=== PATIENT | male | born 1990 | race Hispanic/Latino ===

== ENCOUNTER 2024-10-16 21:18 | Emergency (ER) | payer OTHER ==
[~2024-10-16] VITALS: Ht 180.3 cm; Wt 114.3 kg
[2024-10-16 22:15] LABS: RAPID GROUP A STREP negative (NEGATIVE)
[2024-10-16 22:18] LABS: IMMATURE GRANULOCYTE ABSOLUTE 0.05 K/uL (0-1); NUCLEATED RED BLOOD CELLS 0.0 % (0.0-0.19); PLATELET COUNT (AUTO) 277 K/uL (130-400); RED BLOOD CELL COUNT(AUTO) 5.17 MIL/uL (4.50-6.20); RED CELL DISTRIBUTION WIDTH 12.5 % (11.0-15.5); WHITE BLOOD COUNT (AUTO) 12.0 K/uL (4.8-10.8)
[2024-10-16 22:20] LABS: SARS-CoV-2, RNA, NAAT NEGATIVE SARS CoV-2 (NEGATIVE)
[2024-10-16 22:26] LABS: CREATININE 1.0 mg/dL (0.5-1.3); GLOMERULAR FILTR. RATE CALC 101.0 mL/min (>90); GLUCOSE,RANDOM 313.0 mg/dL (70-105); SODIUM SERUM 132.0 mmol/L (136-145); UREA NITROGEN, BLOOD 9.0 mg/dL (7-18)
[2024-10-16] MEDS ORDERED: IOHEXOL-350 75 ML VIAL IV ONE (22:28)
--- NOTE | 2024-10-16 22:44 | NUR ---
PATIENT TRANSPORTED TO CT.
[2024-10-16] MEDS: 0.9%NACL 1000ML 1,000 ML IV ONE (23:36)
--- NOTE | 2024-10-16 23:54 | HMCIMG ---
EXAM: CT Neck With IV Contrast. CLINICAL HISTORY: Rule out peritonsillar abscess. TECHNIQUE: Contiguous axial images were obtained through the neck. Reconstructed imaging. Reformatted/MPR images were performed. A CT scan is done according to ALARA (As Low as Reasonably Achievable). CONTRAST: Isovue-370. COMPARISON: None. FINDINGS: Included intracranial substances, orbits are grossly unremarkable. A mucosal polyp versus a retention cyst in the right maxillary sinus. The nasal septum is deviated to the left side. Bilateral enlarged tonsillar lymph nodes with a 1.7 x 1.6 x 1.1 cm peritonsillar abscess on the right side. Reactive enlargement of the bilateral level 2 lymph nodes. The nasopharynx, oral cavity, hypopharynx, and larynx are grossly unremarkable. Unremarkable epiglottis, vallecula, aryepiglottic folds, pyriform sinuses, and true vocal cords. The hyoid bone, thyroid, cricoid, and arytenoid cartilages are unremarkable. Parotid, submandibular, and thyroid glands are grossly unremarkable. Visualized, lung apices are grossly clear. No acute osseous abnormality. IMPRESSION: Bilateral enlarged tonsillar lymph nodes with a peritonsillar abscess on the right side. Reactive enlargement of the bilateral level 2 lymph nodes. /Pingree
--- NOTE | 2024-10-17 00:10 | ERN ---
ED Note History of Present Illness Stated Complaint: C/O POSSIBLE PERITONILE ABSCESS Chief Complaint: Sore Throat Time Seen by MD: 21:23 Dictation: 33-YEAR-OLD PRESENTS TO ER COMPLAINTS OF SORE THROAT WHEN DIFFICULTY SWALLOWING FOR 2 DAYS. STATES HE IS COMING FROM AN URGENT CARE AND THEY TOLD HIM TO COME TO GET RULED OUT FOR A PERITONSILLAR ABSCESS. DENIES FEVER. Allergies: Coded Allergies: No Known Allergies (Unverified Allergy, Unknown, 10/16/24) Past Medical History Past Medical History: Diabetes-Type II Surgical History: None Review of System Dictation CONSTITUTIONAL: NEGATIVE FOR FEVER,CHILLS, AND WEIGHT LOSS EYES: NEGATIVE FOR INJURY, PAIN,REDNESS, AND DISCHARGE ENT: POSITIVE FOR PAIN, DIFFICULTY SWOLLEN CARDIOVASCULAR: NEGATIVE FOR CHEST PAIN, PALPITATIONS, AND EDEMA RESPIRATORY: NEGATIVE FOR SHORTNESS OF BREATH, COUGH, WHEEZING, AND PLEURITIC CHEST PAIN ABDOMEN/GI: NEGATIVE FOR ABDOMINAL PAIN, NAUSEA, VOMITING, DIARRHEA, AND CONSTIPATION BACK: NEGATIVE FOR INJURY AND PAIN : NEGATIVE FOR INJURY, BLEEDING AND DISCHARGE MS/EXTREMITY: NEGATIVE FOR INJURY AND DEFORMITY SKIN: NEGATIVE FOR RASH, AND DISCOLORATION NEURO: NEGATIVE FOR HEADACHE, WEAKNESS, NUMBNESS, TINGLING, AND SEIZURE PSYCH: NEGATIVE FOR SUICIDE IDEATION, HOMICIDAL IDEATION, AND HALLUCINATIONS ALLERGY/IMMUNOLOGY: NEGATIVE FOR HIVES, RASH, AND ALLERGIES Initial Vital Sign VS Vital Signs Date Time Temp Pulse Resp B/P (MAP) Pulse Ox O2 Delivery O2 Flow Rate FiO2 10/16/24 21:21 98.4 103 20 156/99 96 Room Air 10/16/24 21:45 0 21 Physical Exam Dictation GENERAL: AWAKE, ALERT, NAD HEAD/FACE: NORMOCEPHALIC, ATRAUMATIC EYES: PERRL, EOMI, VISION AT BASELINE ENT: RIGHT TONSIL AREA NOTED WITH SWELLING, TRISMUS, MUFFLED VOICE NECK: TRACHEA MIDLINE, SUPPLE, NO NUCHAL RIGIDITY CARDIOVASCULAR: RRR, NORMAL S1/S2, NO MRGS, NO JVD RESPIRATORY: CTAB, NO RESPIRATORY DISTRESS, NO RALES OR WHEEZES ABDOMEN: SOFT, NON-TENDER, NON-DISTENDED, NORMAL BOWEL SOUNDS, NO GUARDING OR REBOUND. SKIN: WARM, DRY, NORMAL TURGOR, NO RASH MS/EXTREMITY: PULSES EQUAL, NO CYANOSIS, NEUROVASCULAR INTACT, FROM NEURO: COAX4, GCS 15, STRENGTH 5/5, CN 2-12 INTACT, NORMAL CEREBELLAR EXAM, NORMAL GAIT, PSYCH: NORMAL BEHAVIOR, MOOD, AND AFFECT NORMAL Results (Laboratory/Radiology) Laboratory/Radiology Laboratory Tests Test 10/16/24 22:02 10/16/24 22:12 SARS-CoV-2, RNA, NAAT NEGATIVE SARS CoV-2 Group A Streptococcus Rapid negative (NEGATIVE) White Blood Count 12.0 K/uL (4.8-10.8) H Red Blood Count 5.17 MIL/uL (4.50-6.20) Hemoglobin 16.2 g/dL (14.0-18.0) Hematocrit 46.8 % (42-54) Mean Corpuscular Volume 90.5 fL (79-99) Mean Corpuscular Hemoglobin 31.3 pg (27.0-33.0) Mean Corpuscular Hemoglobin Concent 34.6 g/dL (32.0-36.0) Red Cell Distribution Width 12.5 % (11.0-15.5) Platelet Count 277 K/uL (130-400) Mean Platelet Volume 9.7 fL (7.5-10.5) Immature Granulocyte % (Auto) 0.4 % (0-1) Neutrophils (%) (Auto) 74.9 % (40.0-77.0) Lymphocytes (%) (Auto) 16.2 % (21.0-51.0) L Monocytes (%) (Auto) 7.4 % (3.0-13.0) Eosinophils (%) (Auto) 0.4 % (0.0-8.0) Basophils (%) (Auto) 0.7 % (0.0-5.0) Neutrophils # (Auto) 9.0 K/uL (1.8-7.7) H Lymphocytes # (Auto) 1.9 K/uL (1.0-4.8) Monocytes # (Auto) 0.9 K/uL (0.1-1.0) Eosinophils # (Auto) 0.05 K/uL (0.00-0.70) Basophils # (Auto) 0.08 K/uL (0.00-0.20) Absolute Immature Granulocyte (auto 0.05 K/uL (0-1) Nucleated Red Blood Cells 0.0 % (0.0-0.19) Sodium Level 132 mmol/L (136-145) L Potassium Level 4.0 mmol/L (3.5-5.1) Chloride Level 100 mmol/L (101-111) L Carbon Dioxide Level 30 mmol/L (21-32) Blood Urea Nitrogen 9 mg/dL (7-18) Creatinine 1.0 mg/dL (0.5-1.3) Glomerular Filtration Rate Calc 101 mL/min (>90) Random Glucose 313 mg/dL (70-105) H Total Calcium 8.8 mg/dL (8.5-10.1) CT Scan Comment: EXAM: CT Neck With IV Contrast. CLINICAL HISTORY: Rule out peritonsillar abscess. TECHNIQUE: Contiguous axial images were obtained through the neck. Reconstructed imaging. Reformatted/MPR images were performed. A CT scan is done according to ALARA (As Low as Reasonably Achievable). CONTRAST: Isovue-370. COMPARISON: None. FINDINGS: Included intracranial substances, orbits are grossly unremarkable. A mucosal polyp versus a retention cyst in the right maxillary sinus. The nasal septum is deviated to the left side. Bilateral enlarged tonsillar lymph nodes with a 1.7 x 1.6 x 1.1 cm peritonsillar abscess on the right side. Reactive enlargement of the bilateral level 2 lymph nodes. The nasopharynx, oral cavity, hypopharynx, and larynx are grossly unremarkable. Unremarkable epiglottis, vallecula, aryepiglottic folds, pyriform sinuses, and true vocal cords. The hyoid bone, thyroid, cricoid, and arytenoid cartilages are unremarkable. Parotid, submandibular, and thyroid glands are grossly unremarkable. Visualized, lung apices are grossly clear. No acute osseous abnormality. IMPRESSION: Bilateral enlarged tonsillar lymph nodes with a peritonsillar abscess on the right side. Reactive enlargement of the bilateral level 2 lymph nodes. Course ED Course Orders Procedure Category Date Status Time Covid Rna Naat LAB 10/16/24 Complete 21:25 Rapid (Group A Strep) LAB 10/16/24 Complete 21:25 Cbc With Differential LAB 10/16/24 Complete 21:58 Basic Metabolic Panel LAB 10/16/24 Complete 21:58 Ketorolac PHA 10/16/24 Complete Tromethamine 30mg/Ml 22:00 Dexamethasone 4mg/Ml PHA 10/16/24 Complete 1ml Vial (Dexametha 22:00 Ct Neck Soft Tiss CT 10/16/24 Resulted W/Contrast 21:58 Iohexol (Omnipaque) PHA 10/16/24 Complete 22:28 0.9%Nacl 1000ml (Ns PHA 10/16/24 Complete 1000ml) 23:00 Ceftriaxone 2gm Vial PHA 10/16/24 Complete (Rocephin 2gm Inj) 23:30 Insulin Regular, PHA 10/17/24 Complete Human 3ml (Humulin R 00:30 Current Medications Medications (Trade) Dose Ordered Sig/Se[place]our Route PRN Reason Start Time Stop Time Status Last Admin Dose Admin Ceftriaxone Sodium (Rocephin 2gm Inj) 2 gm ONCE ONCE IVPB 10/16/24 23:30 10/16/24 23:31 DC 10/16/24 23:36 Dexamethasone Sodium Phosphate (dexaMETHasone 4MG/ML 1ML VIAL) 6 mg ONCE ONCE IVP 10/16/24 22:00 10/16/24 22:04 DC 10/16/24 22:55 Insulin Human Regular (humuLIN R 100 UNIT/ML 3ML) 5 unit ONCE ONCE IV 10/17/24 00:30 10/17/24 00:31 DC 10/17/24 00:27 Iohexol (Omnipaque) 75 ml STK-MED ONCE IV 10/16/24 22:28 10/16/24 22:28 DC Ketorolac Tromethamine (toRADol) 30 mg ONCE ONCE IVP 10/16/24 22:00 10/16/24 22:04 DC 10/16/24 22:56 Sodium Chloride 1,000 ml @ 0 mls/hr ONCE ONCE IV 10/16/24 23:00 10/16/24 23:01 DC 10/16/24 23:36 Vital Signs Date Time Temp Pulse Resp B/P (MAP) Pulse Ox O2 Delivery O2 Flow Rate FiO2 10/16/24 23:17 99.0 82 14 138/82 97 Room Air* 0 21 10/16/24 21:45 99.0 84 14 142/82 98 Room Air* 0 21 10/16/24 21:21 98.4 103 20 156/99 96 Room Air Medical Decision Making MDM 33-YEAR-OLD PRESENTS TO ER COMPLAINTS OF SORE THROAT WHEN DIFFICULTY SWALLOWING FOR 2 DAYS. STATES HE IS COMING FROM AN URGENT CARE AND THEY TOLD HIM TO COME TO GET RULED OUT FOR A PERITONSILLAR ABSCESS. DENIES FEVER. PATIENT IS A DIABETIC HAS NOT TAKEN MEDICATIONS FOR 7 MONTHS. MDM: DIFFERENTIAL DIAGNOSIS: STREP THROAT, TONSILLITIS, PERITONSILLAR ABSCESS RATIONALE: TESTS CONSIDERED AND ORDERED SECONDARY TO SHARED DECISION MAKING INCLUDE: LABS, ECG AND RADIOLOGY PREVIOUS OUTSIDE RECORDS REVIEWED: OLD ER VISITS. RISK OF COMPLICATION AND/OR MORBIDITY OR MORTALITY OF PATIENT MANAGEMENT: NONE MEDICATIONS-PER MEDICATION RECONCILIATION NEED FOR HOSPITALIZATION: PATIENT DOES MEET CRITERIA FOR HOSPITALIZATION. Needs transferred to a higher level of acuity, with ENT specialist NEED FOR EMERGENCY MAJOR/MINOR SURGERY: YES PATIENT NEEDS ENT TO DRAIN THE PERITONSILLAR ABSCESS ON RIGHT SIDE. PATIENT WILL HAVE TO BE TRANSFERRED WE HAVE NO ENT. PATIENT AWARE AND AGREES WITH PLAN Dr. Dimitry TRAN at [facility] in [place] has accepted patient. THERE ARE NO SOCIAL CONCERNS WITH THIS PATIENT. PRESCRIPTION DRUG MANAGEMENT PRESCRIPTIONS WILL INCLUDE SYMPTOMATIC CARE PATIENT'S PRIOR EXTERNAL MEDICAL RECORDS FROM OTHER ER VISITS WERE REVIEWED BY ME INDICATED. PRIOR TESTING AND RESULTS FROM PREVIOUS VISITS WERE REVIEWED. PRIOR TESTS WERE TAKEN INTO ACCOUNT WITH MEDICAL DECISION MAKING AND RESOURCE UTILIZATION, INDEPENDENT HISTORIAN/HISTORIANS WERE USED TO OBTAIN COMPLETE MEDICAL HISTORY. I INDEPENDENTLY INTERPRETED THE TEST THAT WERE PERFORMED, RESULTS WERE REVIEWED BY ME AND CONSIDERED FINDINGS ON RADIOLOGY IF ORDERED. DX & DISP Disposition: Transfer Decision to Admit Date: Oct 17, 2024 Decision to Admit Time: 00:02 Departure Impression: Primary Impression: Peritonsillar abscess Additional Impressions: Throat pain, Difficulty swallowing, Diabetes Condition: Stable Assign Patient to: Dr. Dimitry TRAN at [facility] Referrals: SELF,REFERRAL (PCP) PAUL GODOY NP Oct 17, 2024 00:10
--- NOTE | 2024-10-17 00:17 | NUR ---
TRANSFER CALL PLACED TO [facility] [employer] AUDIT CLERK TO INITIATE TRANSFER FOR ENT SERVICES
[2024-10-17 01:39] VITALS: BP 136/82; PULSE 78; RESP 16; TEMP 99; O2SAT 98
--- NOTE | 2024-10-17 01:40 | NUR ---
TRANSFER PT. ACCEPTED BY SETH CUI MD FOR TRANSFER TO [facility] [place] [facility]. REPORT: [phone]
--- NOTE | 2024-10-17 01:57 | NUR ---
[facility] CALLED FOR TRANSPORT--NO RESPONSE AT THIS TIME
--- NOTE | 2024-10-17 02:15 | NUR ---
REPORT GIVEN TO JUVENAL RICHARDSON.
--- NOTE | 2024-10-17 03:03 | NUR ---
[facility] AT BEDSIDE FOR TRANSFER TO [facility] [place] [facility].
--- NOTE | 2024-10-17 03:09 | NUR ---
[facility] HAS LEFT ER WITH PATIENT TO TRANSPORT TO [facility] [place] [facility].
== END 2024-10-17 03:09 | disposition short-term general hospital (02) ==
LOC: EDH 21:18
DX: J36 Peritonsillar abscess (principal); R07.0 Pain in throat; R13.10 Dysphagia, unspecified; E11.9 Type 2 diabetes mellitus without complications; Z20.822 Contact with and (suspected) exposure to COVID-19
CPT/HCPCS: 99285; 96374; 70491; 96375 ×2; 87635; 80048; 85025; 87880; 36415; J1885; J1100; J7030; J0696; Q9967; J1815